=== PATIENT | male | born 1965 | race Caucasian/White ===

== ENCOUNTER 2025-07-19 13:57 | Outpatient (CLI) | payer OTHER, SELFPAY | END 2025-07-19 13:58 | disposition home or self-care (01) | LOC: NFLDREF 07-28 04:02 | PROVIDERS: PCP Family Medicine; Visit Provider Family Medicine | DX: Z12.5 Encounter for screening for malignant neoplasm of prostate (principal); Z00.00 Encounter for general adult medical examination without abnormal findings | CPT/HCPCS: 80053; G0103 ==

== ENCOUNTER 2025-08-29 07:49 | Outpatient (CLI) | payer OTHER, SELFPAY ==
--- NOTE | 2025-08-29 09:36 | P.ANES_ITS ---
Anesthesia Charges Start Date/Time Anesthesia Start Date: 08/29/25 Anesthesia Start Time: 08:51 Stop Date/Time Anesthesia Stop Date: 08/29/25 Anesthesia Stop Time: 09:32 Coding CPT Codes CPT Codes: ANES LWR INTST NDSC NOS - [id number] ([id number]) P3 - PATIENT W/SEVERE SYS DISEASE, QK - BODY LINER 2-4 CNCRNT ANES PROC, QX - DIRECTOR OF ONCOLOGY SVC W/ MD MED DIRECTION
--- NOTE | 2025-08-29 09:36 | W.ANESCHARGE ---
Anesthesia Charges Start Date/Time Anesthesia Start Date: 08/29/25 Anesthesia Start Time: 08:51 Stop Date/Time Anesthesia Stop Date: 08/29/25 Anesthesia Stop Time: 09:32 Coding CPT Codes CPT Codes: ANES LWR INTST NDSC NOS - [id number] ([id number]) P3 - PATIENT W/SEVERE SYS DISEASE, QK - SUPERINTENDENT CEMETERY 2-4 CNCRNT ANES PROC, QX - ELEVATOR MECHANIC SVC W/ MD MED DIRECTION
--- NOTE | 2025-08-29 09:37 | P.ANES_ITS ---
Anesthesia Charges Start Date/Time Anesthesia Start Date: 08/29/25 Anesthesia Start Time: 08:51 Stop Date/Time Anesthesia Stop Date: 08/29/25 Anesthesia Stop Time: 09:32 Coding CPT Codes CPT Codes: ANES LWR INTST NDSC NOS - [id number] ([id number]) QK - RESEARCH STAFF MEMBER 2-4 CNCRNT ANES PROC, QX - SENIOR ENERGY CONSULTANT SVC W/ MED DIRECTION, P3 - PATIENT W/SEVERE SYS DISEASE
--- NOTE | 2025-08-29 09:37 | W.ANESCHARGE ---
Anesthesia Charges Start Date/Time Anesthesia Start Date: 08/29/25 Anesthesia Start Time: 08:51 Stop Date/Time Anesthesia Stop Date: 08/29/25 Anesthesia Stop Time: 09:32 Coding CPT Codes CPT Codes: ANES LWR INTST NDSC NOS - [id number] ([id number]) QK - VASCULAR TECHNOLOGIST SONOGRAPHER 2-4 CNCRNT ANES PROC, QX - CONCERT PROMOTER SVC W/ MED DIRECTION, P3 - PATIENT W/SEVERE SYS DISEASE
== END 2025-08-29 07:50 | disposition home or self-care (01) ==
LOC: OP CLINIC 07:52
PROVIDERS: PCP Family Medicine; Visit Provider Surgery
DX: Z12.11 Encounter for screening for malignant neoplasm of colon (principal); D12.3 Benign neoplasm of transverse colon; D12.8 Benign neoplasm of rectum; K57.30 Diverticulosis of large intestine without perforation or abscess without bleeding; Z86.0100 Personal history of colon polyps, unspecified
CPT/HCPCS: 00811; 00812; 45385; J2704

== ENCOUNTER 2025-09-06 15:17 | Outpatient (CLI) | payer OTHER, SELFPAY | END 2025-09-06 15:18 | disposition home or self-care (01) | LOC: NFLDREF 09-10 18:42 | PROVIDERS: PCP Family Medicine; Referring Provider Family Medicine; Visit Provider Family Medicine | DX: I10 Essential (primary) hypertension (principal); R74.01 Elevation of levels of liver transaminase levels | CPT/HCPCS: 80053 ==